=== PATIENT | male | born 1985 | race Caucasian/White ===

== ENCOUNTER 2021-02-08 13:50 | Emergency (ER) | payer OTHER, SELFPAY ==
--- NOTE | ~2021-02-08 | CT_ITS ---
EXAMINATION: CT BRAIN, CT CERVICAL SPINE AND CT FACIAL BONES CLINICAL INFORMATION: Trauma. COMPARISON: None TECHNIQUE: 5 mm thin axial and reformatted 2 mm thin sagittal and coronal images of brain were obtained without contrast. Axial 3 mm thin and reformatted 1.5 mm thin sagittal and coronal images of facial bones were obtained. Lastly 3 mm thin axial and reformatted 2 mm thin images of cervical spine were obtained. FINDINGS: BRAIN: There is no acute intra-axial, extra-axial bleed, masses, collection or midline shift. There is no acute infarction in evolution. There is no edema The lateral ventricles are symmetrical in size and configuration without enlargement. An ectatic basilar artery is noted. Bone windows reveal diffuse mucoperiosteal thickening bilateral paranasal sinuses are small polyp or retention cyst left maxillary sinus. FACIAL BONES: There is an old left intraorbital depressed fracture. Maxillofacial, nasal or orbital fractures seen. There is diffuse mucoperiosteal thickening involving the sinuses. The bony sinus [place] except for the superior wall of left maxillary sinus is unremarkable. The lamina papyracea and the cribriform plate is intact. Bilateral TM joints and mandible appears unremarkable. Cervical spine: There is mild straightening of cervical lordosis. The vertebral heights and alignment appears normal. The disc heights are normal No visible acute fracture, dislocation or lytic process seen. The prevertebral and paravertebral soft tissues are normal. The central trachea is widely patent. Thyroid lobes, submandibular gland and visualized parotid glands are symmetrical and normal. The prevertebral and paravertebral soft tissues are normal. CT/CT cervical spine wo con IMPRESSION: No acute intracranial process seen. No acute maxillofacial, nasal or mandibular fracture. Old left infraorbital wall fracture. Chronic pansinusitis. Mild reversal of cervical lordosis without any visible acute fracture or dislocation seen.
[2021-02-08 14:00] VITALS: BP 133/91; PULSE 121; RESP 18; TEMP 37.1; O2SAT 98; BMI 25.0
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
--- NOTE | 2021-02-08 15:51 | MHC.RECOVSUP ---
Recovery Support note: Patient is a 35 year old Bhutanese speaking male who presented [place] [facility] [place] custody intoxicated. This writer editor met with patient to discuss his alcohol use and to offer support and treatment options. Patient reports he does not drink very often and does not feel he has a problem. Patient reports that when he does drink, he is a nice hayley. However patient went on to say if someone gets me going, that's a different story. Patient declined resources on alcohol cessation support. Patient requested a nicotine patch. Discussed case with patient's ED provider.
[2021-02-08 16:03] VITALS: BP 129/85; PULSE 88; RESP 20; O2SAT 98
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
[2021-02-08] MEDS: Nicotine 14 MG PATCH.TD24 TRANSDERMA (17:08)
== END 2021-02-08 17:20 | disposition home or self-care (01) ==
PROVIDERS: Emergency Provider Internal Medicine
DX: S09.90XA Unspecified injury of head, initial encounter (principal); F10.10 Alcohol abuse, uncomplicated; W19.XXXA Unspecified fall, initial encounter; Y93.9 Activity, unspecified; Y92.9 Unspecified place or not applicable; Y99.9 Unspecified external cause status
CPT/HCPCS: 70450; 70486; 72125; 99284

== ENCOUNTER 2024-08-18 08:23 | Emergency (ER) | payer OTHER, SELFPAY ==
--- NOTE | ~2024-08-18 | CT_ITS ---
CLINICAL HISTORY: R facial swelling ?abscess CT maxillofacial with contrast Comparison: 02/08/2021 02:58 PM EDT: CT PM CDT) Findings: No acute fractures. No dislocations. Temporomandibular joints are intact. Paranasal sinuses and mastoid air cells clear. There is right cheek subcutaneous edema, possible cellulitis. There are no focal masses or collections to suggest developing abscess. There is periapical radiolucency in a right mandibular premolar tooth, possible periodontal disease. Consider dental consultation for follow-up. Orbital contents within normal limits. Visualized intracranial contents are within normal limits. No foreign bodies. IMPRESSION: 1. Possible right cheek cellulitis. Correlate clinically. 2. Possible periodontal disease in a right mandibular premolar tooth. Consider dental consultation for follow-up. This document has been electronically signed by: Dalton Garcia MD on 08/18/2024 12:29:25
[2024-08-18 08:35] VITALS: BP 135/68; PULSE 103; RESP 16; TEMP 36.4; O2SAT 98; BMI 30.3
[2024-08-18] MEDS: Ampicillin Sodium/Sulbactam Na 3 GM in 0.9 % Sodium Chloride 100 ML IV (11:32)
[2024-08-18 11:46] LABS: MANUAL DIFF FLAG NO
[2024-08-18 11:47] LABS: Basophils Absolute Auto 0.1 X10*3/uL (0.0-0.2); Basophils Percent Auto 0.5 % (0-2); Eosinophils Absolute Auto 0.3 X10*3/uL (0.0-0.4); Eosinophils Percent Auto 2.8 % (0-4); Hematocrit 44.2 % (42.0-52.0); Hemoglobin 15.3 g/dl (14.0-18.0); Imm Gran Abs Auto 0.05 X10*3/uL (0.00-0.03); Imm Gran Pct Auto 0.4 % (0.0-0.4); Lymphocytes Absolute Auto 1.7 X10*3/uL (1.2-4.9); Lymphocytes Percent Auto 13.8 % (20-40); Mean Corpuscular HGB Conc 34.6 g/dl (31.0-36.0); Mean Corpuscular Hemoglobin 32.1 pg (27.0-33.0); Mean Corpuscular Volume 92.9 fL (80.0-98.0); Mean Platelet Volume 9.9 fL (9.4-12.4); Monocytes Absolute Auto 0.9 X10*3/uL (0.1-1.2); Monocytes Percent Auto 7.6 % (2-11); Neutrophils Percent Auto 74.9 % (45-73); Platelet Count 281 X10*3/uL (160-400); Red Blood Count 4.76 X10*6/uL (4.60-5.80); Red Cell Distribution Width 13.6 % (11.0-16.0)
--- NOTE | 2024-08-18 11:50 | ED.DENTAL ---
HPI - Dental/Oral General Chief complaint: Dental/Oral Stated complaint: abscess on cheek Time Seen by Provider: 08/18/24 11:02 Source: patient, RN notes reviewed and old records reviewed Mode of arrival: ambulatory History of Present Illness ED Provider: Nury Vo PA-C HPI Narrative: 38-year-old male with no significant past medical history presenting to the ED complaining of right-sided facial swelling/dental pain x2 days. Reports swelling notably worse this morning. States has been on waiting list for right dental extraction. Denies recent dental procedures, fever, chills, drainage from area, difficulty or inability to swallow, ear pain, SOB Related Data Previous Rx's ?Medication ?Instructions ?Recorded acetaminophen 500 mg tablet 500 mg PO Q6H PRN fever or pain 08/18/24 (Tylenol Extra Strength) #14 tabs amoxicillin 875 mg-potassium 1 tab PO BID 7 days #14 tabs 08/18/24 clavulanate 125 mg tablet ibuprofen 800 mg tablet 800 mg PO Q8H PRN pain #14 tabs 08/18/24 Allergies Allergy/AdvReac Type Severity Reaction Status Date / Time No Known Allergies Allergy Verified 08/18/24 08:38 Review of Systems Review of Systems: Yes all other systems are reviewed and are negative Constitutional: Constitutional: Reports as per [facility] Past Medical History Attestation statement: The following information was validated with the patient. Source: old records reviewed Social History Social History Alcohol intake: current Patient Tobacco Use Status: Current everyday Tobacco user Physical Exam Vital Signs: Vital Signs: Last Vital Signs Temp 98.9 F 08/18/24 12:56 Pulse 71 08/18/24 12:56 Resp 16 08/18/24 12:56 BP 124/89 08/18/24 12:56 Pulse Ox 98 08/18/24 12:56 O2 Del Method Room Air 08/18/24 12:56 BMI result Body Mass Index 30.3 Const: General: cooperative, healthy appearing and no acute distress Orientation/consciousness: patient oriented x3 Limitations: no limitations HEENT: Other: Right lower facial/jaw swelling appreciated. Mildly tender to palpation. No erythema. Poor dentition. No appreciable focal fluctuance/induration or intraoral cellulitis. No intraoral tenderness. Head: Yes normal to inspection and Yes atraumatic Ears: hearing grossly normal bilaterally, external ears normal, TM's normal bilaterally and mastoids normal General nose exam: Normal external nose present Mouth: no drooling Teeth and gingiva: caries and poor dentition Throat: Yes tonsils normal, Yes uvula midline, No uvula laterally displaced and No uvular edema Eyes: General: appearance normal, both eyes and all related structures EOM: EOMs intact bilaterally Neck: Neck: Yes normal visual inspection and Yes no meningeal signs Resp: Effort & Inspection: normal respiratory effort, no respiratory distress and no stridor Cardio: Rate: regular rate Skin: Rashes: no rashes Wounds: no wounds Neuro: General: patient oriented x3, tone normal and no meningeal signs Cranial nerves: Yes CN's II-XII intact bilaterally Gait exam (Neuro): Normal gait present Extrem: General: Yes normal to inspection Course Course Course Narrative: -1235--mild leukocytosis of 12.0. CRP minimally elevated. Labs otherwise reassuring CT facial bones w IV con IMPRESSION: 1. Possible right cheek cellulitis. Correlate clinically. 2. Possible periodontal disease in a right mandibular premolar tooth. Consider dental consultation for follow-up. > no drainable collection at this time. Will treat patient for facial cellulitis, recommended close dentistry follow-up Results discussed with patient including worrisome signs and symptoms and strict return precautions, and when to return to the emergency department. They verbalized understanding and feel safe for discharge at this time. Medications Administered Discontinued Medications Generic Name Dose Route Start Last Admin Trade Name Freq PRN Reason Stop Dose Admin Ampicillin Sodium/Sulbactam 100 mls @ 200 mls/hr 08/18/24 11:08 08/18/24 12:14 Sodium 3 gm/ Sodium Chloride IV 08/18/24 11:37 Infused ONCE ONE Infusion Iohexol 85 ml 08/18/24 12:08 08/18/24 12:09 Iohexol 350 Mg/Ml 75 Ml Infus..Btl IV 08/18/24 12:09 85 ml ONCE ONE Administration Medical Decision Making Medical Decision Making [facility] Narrative: 38-year-old male with no significant past medical history presenting to the ED complaining of right-sided facial swelling/dental pain x2 days. On exam mildly tachycardic likely from pain, NAD, nontoxic appearing, physical exam as noted above. Concern for dental abscess/infection vs cellulitis. No appreciable drainable collection at this time. No evidence of INDUSTRIAL/ORGANIZATIONAL PSYCHOLOGIST/retropharyngeal abscess. Plan: Labs, CT, empiric IV antibiotics. Low suspicion for severe sepsis at this time Please refer to course for remaining clinical decision making, interpretation of labs/imaging results, and discussions with consultants and/or family members. Differential Diagnosis Differential Diagnoses: The differential diagnosis associated with the presentation includes As above Admission/Observation Consideration of admission/observation: Escalation of care including admission/observation considered Lab Data MDM Lab Attestation statement: I reviewed the patient's lab results. 08/18/24 11:30 08/18/24 11:30 Labs: Lab Results 08/18/24 Range/Units 11:30 WBC 12.0 H (4.8-10.8) X10*3/uL RBC 4.76 (4.60-5.80) X10*6/uL Hgb 15.3 (14.0-18.0) g/dl Hct 44.2 (42.0-52.0) % MCV 92.9 (80.0-98.0) fL MCH 32.1 (27.0-33.0) pg MCHC 34.6 (31.0-36.0) g/dl RDW 13.6 (11.0-16.0) % Plt Count 281 (160-400) X10*3/uL MPV 9.9 (9.4-12.4) fL Immature Gran % (Auto) 0.4 (0.0-0.4) % Neut % (Auto) 74.9 H (45-73) % Lymph % (Auto) 13.8 L (20-40) % [place] % (Auto) 7.6 (2-11) % Eos % (Auto) 2.8 (0-4) % Baso % (Auto) 0.5 (0-2) % Lymph # (Auto) 1.7 (1.2-4.9) X10*3/uL [place] # (Auto) 0.9 (0.1-1.2) X10*3/uL Eos # (Auto) 0.3 (0.0-0.4) X10*3/uL Baso # (Auto) 0.1 (0.0-0.2) X10*3/uL Abs Immat Gran (auto) 0.05 H (0.00-0.03) X10*3/uL Absolute Neuts (auto) 9.0 H (2.0-8.3) x10*3/uL Absolute Nucleated RBC 0.000 (0.0-0.012) X10*3/uL Nucleated RBC % (auto) 0.0 (0.0-0.2) /100WBC ESR 7 (0-15) MM/HR Sodium 139 (135-145) mmol/L Potassium 4.1 (3.3-5.1) mmol/L Chloride 105 (96-108) mmol/L Carbon Dioxide 23 (22-29) mmol/L Anion Gap 15 (12-20) BUN 12 (9-16) mg/dL Creatinine 0.82 (0.5-1.4) mg/dL Estim Creat Clear Calc 117.7 Estimated GFR > 60 Random Glucose 91 (60-115) mg/dL Calcium 9.8 (8.4-10.2) mg/dL C-Reactive Protein 1.25 H (< or = 0.50) mg/dL Independent Interpretation I performed an independent interpretation of an: CT Scan Radiology Impression Discussion of test interpretation with radiology: I have reviewed the radiologist's reading. External Record Review External record reviewed: Inpatient record, Office record, Outpatient record, Prior outpatient labs, Prior outpatient radiology, Primary care record and Outside ED record Tests considered The following testing was considered but not selected: As above Prescription Management I considered prescription management with: Pain Medication and Antibiotic Chronic Conditions Patient?s care impacted by: Other Social Determinants Patient?s care significantly limited by Social Determinants of Health including: Low income, Problems related to primary support group and Other Social Determinant of Health Discharge Plan Discharge Clinical Impression: Cellulitis of cheek, Periodontal disease Patient Disposition: Home, Self-Care Instructions: Cellulitis (DC), Periodontal Disease (DC) Additional Instructions: Your blood work is reassuring. The CT scan shows cellulitis of your right cheek as well as dental disease You need to have close follow-up with your dentist. Call to make an appointment MAXINE Augmentin as an antibiotic please take as prescribed until completion If cheek swelling persists/worsens, skin turns red, you have drainage in your mouth, difficulty or inability to swallow return to the ED immediately Please take ibuprofen and Tylenol for pain/swelling. Please take with food Prescriptions: New amoxicillin-pot clavulanate 875-125 mg tablet 1 tab PO BID 7 Days Qty: 14 0RF ibuprofen 800 mg tablet 800 mg PO Q8H PRN (Reason: pain) Qty: 14 0RF acetaminophen [Tylenol Extra Strength] 500 mg tablet 500 mg PO Q6H PRN (Reason: fever or pain) Qty: 14 0RF Referrals: Nirmal Bender [Dentist] - Salvatore Ramirez DMD [Dentist] - Nicole Vela DMD [Dentist] - Interventions: ED Discharge Assessment Last Done: 08/18/24 12:56 Discharge Date/Time: 08/18/24 12:57 Print Language: Malay
[2024-08-18 11:58] LABS: Anion Gap 15 (12-20); Blood Urea Nitrogen 12 mg/dL (9-16); C Reactive Protein 1.25 mg/dL (< or = 0.50); Calcium 9.8 mg/dL (8.4-10.2); Carbon Dioxide 23 mmol/L (22-29); Chloride 105 mmol/L (96-108); Creatinine Clr Calc Pharmacy 117.7; Estimated Glomerular Filt Rate > 60; Glucose Random 91 mg/dL (60-115); Potassium 4.1 mmol/L (3.3-5.1); Sodium 139 mmol/L (135-145)
[2024-08-18] MEDS: iohexoL 350 MG/ML 75 ML INFUS..BTL 85 ML IV (12:09)
[2024-08-18 12:20] VITALS: PULSE 68; TEMP 37.2; O2SAT 95
[2024-08-18 12:28] LABS: Erythrocyte Sedimentation Rate 7 MM/HR (0-15)
[2024-08-18 12:55] VITALS: BP 124/89; PULSE 71; RESP 16; TEMP 37.2; O2SAT 98
[2024-08-18 12:56] VITALS: BP 124/89; PULSE 71; RESP 16; TEMP 37.2; O2SAT 98
== END 2024-08-18 12:57 | disposition home or self-care (01) ==
PROVIDERS: Physician Assistant; Emergency Provider Emergency Medicine
DX: L03.211 Cellulitis of face (principal); L02.01 Cutaneous abscess of face; K05.6 Periodontal disease, unspecified; Z79.899 Other long term (current) drug therapy
CPT/HCPCS: 36415; 70487; 80048; 85025; 85652; 86140; 87040; 96365; 99283; 99284; J0295; Q9967

== ENCOUNTER → 2024-08-18 11:08 | Outpatient (BNV) | payer OTHER, SELFPAY | PROVIDERS: Emergency Provider Emergency Medicine; Visit Provider Specialist | DX: L03.211 Cellulitis of face (principal) | CPT/HCPCS: 70487 ==